=== PATIENT | female | born 1940 | race Caucasian/White ===

== ENCOUNTER 2018-04-01 15:41 | Inpatient (IN) ==
[2018-04-01] MEDS ORDERED: Ipratropium/Albuterol Neb 3 ML IH ONE (15:44)
[2018-04-01] MEDS ORDERED: methylPREDNISolone 125 MG/2 ML VIAL IVP ONE (15:45)
[2018-04-01] MEDS ORDERED: 0.9 % Sodium Chloride 1,000 ML IVC SCH ×2 (15:45→18:18)
--- NOTE | 2018-04-01 15:46 | Emergency Department Note ---
Disposition Clinical Impression: Congestive heart failure, Hypertension Disposition: Admitted As Inpatient Condition: Good SOB HPI - General Chief Complaint: ED Shortness of Breath/Dyspnea Stated Complaint: difficulty breathing Time Seen by Provider: 04/01/18 15:43 Source: patient Mode of arrival: EMS Limitations: no limitations Nursing Notes Reviewed: Yes Vital Signs Reviewed: Yes - History of Present Illness Patient states his been short of breath progressively worse over the past couple of days. She coughing up a thick yellow sputum she complains of being achy all over. She did have her flu shot this year. She denies any fevers or chest pain. Onset (ago): day(s) (2 days) Severity: moderate Consistency/Duration: constant Improves with: nothing Worsens with: nothing Known history of: COPD, congestive heart failure Associated symptoms: Reports: cough, sputum production, other (bilateral lower leg edema). Denies: chest pain, fever, wheezing Cough Description: Involuntary Cough Frequency: Intermittent Sputum production: Yes Sputum Amount: Scant Sputum Color: Yellow - Related Data Home Medications Medication Instructions Recorded Confirmed ALPRAZolam [Xanax 0.5 MG Tablet] 0.5 mg PO BID 11/06/14 11/06/14 Butalb/Acetaminophen/Caffeine 50 mg PO Q4H PRN 11/06/14 11/06/14 [Fioricet 50-300-40 mg Capsule] Clopidogrel [Plavix] 75 mg PO DAILY 11/06/14 11/06/14 Labetalol [Trandate] 200 mg PO BID 11/06/14 11/06/14 Lansoprazole [Prevacid] 15 mg PO 11/06/14 11/06/14 Lisinopril [Zestril] 40 mg PO DAILY 11/06/14 11/06/14 Ondansetron [Zofran] 8 mg PO Q8HR 11/06/14 11/06/14 Oxycodone HCl/Acetaminophen 10 - 325 mg PO Q6H PRN 11/06/14 11/06/14 [Endocet 10-325 mg Tablet] Sucralfate [Carafate] 1 gm PO 11/06/14 11/06/14 Trazodone HCl [Oleptro ER] 150 mg PO 11/06/14 11/06/14 Allergies Allergy/AdvReac Type Severity Reaction Status Date / Time Amoxicillin Allergy Hives Verified 11/06/14 12:46 codeine Allergy Swelling Verified 11/06/14 12:46 of Lip/Tongue/Throat pentazocine [From Talwin] Allergy unknown Verified 11/06/14 12:46 acetaminophen [From Vicodin] AdvReac Vomiting Verified 11/06/14 12:43 aspirin AdvReac Vomiting Verified 11/06/14 12:43 celecoxib [From Celebrex] AdvReac kidney Verified 11/06/14 12:43 problems gabapentin AdvReac Vomiting Verified 11/06/14 12:46 hydrocodone [From Vicodin] AdvReac Vomiting Verified 11/06/14 12:43 All systems ED: reviewed and negative except as stated. Review of Systems: As Per HPI Constitutional: Denies: fever, chills, weakness, weight change Eyes: Denies: eye pain, eye discharge, vision change ENT ED: Denies: ear pain, throat pain, dental pain, hearing loss, epistaxis, congestion, dysphagia Cardiovascular: Denies: chest pain, palpitations, dyspnea on exertion, edema, syncope Respiratory: Reports: as per HPI, cough, dyspnea, sputum production Gastrointestinal: Denies: abdominal pain, nausea, vomiting, diarrhea, constipation, hematemesis, melena, hematochezia Genitourinary: Denies: dysuria, frequency, hematuria, discharge Musculoskeletal: Denies: back pain, neck pain, arthralgia, myalgia Integumentary: Denies: rash, abrasion, lesions Neurological: Denies: headache, weakness, numbness, paresthesias, confusion, abnormal gait, vertigo Psychiatric: Reports: as per HPI Endocrine: Denies: fatigue Hematological/Lymphatic: Denies: easy bleeding, easy bruising Allergic/Immunologic: Denies: facial swelling, urticaria Past Medical History - Past Medical History Attestation: Yes The following information was validated with the patient. Source: patient, nursing notes reviewed Medical history: Reports: CVA, diabetes, fibromyalgia, hypertension, liver disease, renal disease Surgical history: Reports: angioplasty/stent, breast surgery, cholecystectomy, hysterectomy, orthopedic, other Psychiatric history: Reports: anxiety, depression - Social History Smoking Status: Never smoker Smokeless Tobacco Status: No Alcohol use: Reports: none Drug use: Reports: none Physical Exam - General Limitations: no limitations General appearance: alert, in no apparent distress - Head Head exam: atraumatic, normocephalic, normal inspection - Eye Eye exam: Present: normal appearance, PERRL, EOMI - ENT ENT exam: normal exam, normal oropharynx, mucous membranes moist - Neck Neck exam: Present: normal inspection, full ROM, trachea midline - Chest Chest inspection: Present: normal inspection, symmetric chest wall rise - Respiratory Respiratory exam: Present: respiratory distress (Mild respiratory distress with some retractions and use of accessory muscles. Generally diminished breath sounds. Perhaps a few faint wheezes noted), accessory muscle use - Cardiovascular Cardiovascular exam: Present: regular rate, normal rhythm, normal heart sounds - Abdominal Exam Abdominal exam: Present: soft, Non-Tender, normal bowel sounds - Extremities Exam Extremities exam: Present: pedal edema - Back Exam Back exam: Present: normal inspection, full ROM. Absent: tenderness - Neurological Exam Neurological exam: Present: alert, oriented X3 - Psychiatric Psychiatric exam: Present: normal affect, normal mood - Skin Skin exam: Present: warm, dry, intact Shortness of Breath/Dyspnea - Lab Data Lab results reviewed: Yes I reviewed the patient's lab results. - Radiology Data Radiology results reviewed: Yes I reviewed the patient's radiology results. - EKG Data EKG attestation: Yes I reviewed and interpreted this EKG. EKG results narrative: KG shows sinus rhythm rate of 93 bpm NC interval is 149 ms QRS duration 88 ms QT QTc interval 357 & 444 ms respectively. There appears to be minimal ST depression in the anterolateral leads. QRS axis 60 degrees
[2018-04-01] MEDS ORDERED: Furosemide 20 MG/2 ML VIAL IVP ONE (15:49)
[2018-04-01] MEDS ORDERED: *HR* LORazepam 0.5 MG TABLET PO ONE (16:26)
[2018-04-01 16:40] LABS: Basophils % 0.5 %; Eosinophils % 0.2 %; Hematocrit 30.6 % (35.3-44.9); Hemoglobin 9.7 g/dL (11.5-15.4); Immature Granulocytes % 0.3 % (0-4); Lymphocytes # 1.1 K/mcL (0.6-4.6); Lymphocytes % 17.1 %; Mean Corpuscular HGB Conc 31.7 g/dL (31.6-35.5); Mean Corpuscular Hemoglobin 31.5 pg (28.0-33.3); Mean Corpuscular Volume 99.4 fL (83.0-100.0); Mean Platelet Volume 9.9 fL (9.4-12.4); Monocytes # 0.2 K/mcL (0.0-1.3); Neutrophils # 5.1 K/mcL (1.6-8.9); Platelet Count 410 K/mcL (140-400); Red Blood Count 3.08 M/mcL (3.82-4.97); Red Cell Distribution Width 13.4 % (11.5-14.5); Segmented Neutrophils % 78.9 %
[2018-04-01 16:53] LABS: Alanine Aminotransferase 10 Units/L (7-52); Albumin 4.3 g/dL (3.5-5.7); Albumin/Globulin Ratio 1.4 (1.1-2.2); Alkaline Phosphatase 98 Units/L (34-104); Aspartate Amino Transferase 13 Units/L (13-39); BUN/Creatinine Ratio 12 (6-26); Bilirubin,Total 0.3 mg/dL (0.3-1.0); Blood Urea Nitrogen 27 mg/dL (8-23); Calcium 10.1 mg/dL (8.6-10.3); Carbon Dioxide 19 mEq/L (23-29); Chloride 111 mEq/L (98-107); Glucose 178 mg/dL (70-105); Osmolality,Calculated 298 (280-300); Potassium 4.9 mEq/L (3.5-5.1); Sodium 139 mEq/L (136-145); Total Protein 7.3 g/dL (6.4-8.9); Troponin I < 0.03 ng/mL (< 0.04); eGFR For Non-African Americans 22 (> 60)
[2018-04-01] MEDS ORDERED: cloNIDine HCl 0.1 MG TABLET PO ONE (17:11)
[2018-04-01] MEDS ORDERED: Naloxone 0.4 MG/ML INJ IVP PRN (18:18)
[2018-04-01] MEDS ORDERED: *HR* Metoprolol 5 MG/5 ML VIAL IVP ONE (21:03)
[2018-04-01] MEDS: ALPRAZolam 0.5 MG TABLET PO SCH (21:20)
[2018-04-01] MEDS: Acetaminophen/Butalbital/CaffeineTABLET PO PRN (21:20)
[2018-04-01] MEDS: Ondansetron ODT 4 MG TAB.RAPDIS SL PRN (21:21)
[2018-04-01] MEDS: traMADol 50 MG TABLET PO PRN (22:18)
[2018-04-02] MEDS ORDERED: Ondansetron ODT 4 MG TAB.RAPDIS PO SCH
[2018-04-02] MEDS ORDERED: *HR* Metoprolol 5 MG/5 ML VIAL IVP STA (00:18)
[2018-04-02] MEDS ORDERED: *HR* OxyCODONE/APAP 10/325 TABLET PO STA (02:19)
[2018-04-02] MEDS ORDERED: *HR* Metoprolol 5 MG/5 ML VIAL IVP ONE (02:20)
[2018-04-02] MEDS: Ondansetron ODT 4 MG TAB.RAPDIS SL PRN (02:33)
[2018-04-02] MEDS ORDERED: *HR* Morphine 2 MG/ML SYRINGE IVP ONE (04:29)
[2018-04-02] MEDS ORDERED: amLODIPine 5 MG TABLET PO STA (04:30)
[2018-04-02] MEDS: Ondansetron 4 MG/2 ML VIAL IVP PRN ×3 (04:52→18:09)
[2018-04-02 04:59] LABS: Basophils % 0.1 %; Hematocrit 28.1 % (35.3-44.9); Hemoglobin 9.2 g/dL (11.5-15.4); Immature Granulocytes % 0.8 % (0-4); Lymphocytes # 0.6 K/mcL (0.6-4.6); Lymphocytes % 7.4 %; Mean Corpuscular HGB Conc 32.7 g/dL (31.6-35.5); Mean Corpuscular Hemoglobin 31.6 pg (28.0-33.3); Mean Corpuscular Volume 96.6 fL (83.0-100.0); Mean Platelet Volume 9.5 fL (9.4-12.4); Monocytes # 0.3 K/mcL (0.0-1.3); Monocytes % 3.5 %; Neutrophils # 6.8 K/mcL (1.6-8.9); Platelet Count 378 K/mcL (140-400); Red Blood Count 2.91 M/mcL (3.82-4.97); Red Cell Distribution Width 13.2 % (11.5-14.5); Segmented Neutrophils % 88.2 %
[2018-04-02 05:21] LABS: Calcium 9.7 mg/dL (8.6-10.3); Potassium 4.5 mEq/L (3.5-5.1)
[2018-04-02] MEDS: ALPRAZolam 0.5 MG TABLET PO SCH ×2 (08:21→20:39)
[2018-04-02] MEDS: traMADol 50 MG TABLET PO PRN (08:21)
[2018-04-02] MEDS: Lisinopril 20 MG TABLET PO SCH (08:21)
--- NOTE | 2018-04-02 12:20 | Internal Med History&Physical ---
Date of Encounter: 04/02/18 Time of Encounter: 11:40 Assessment and Plan (1) Congestive heart failure Current visit: Yes Status: Acute Duration and type unknown. Echocardiogram will be ordered to further evaluate. Qualifiers: Heart failure type: unspecified Heart failure chronicity: unspecified Qualified Code(s): I50.9 - Heart failure, unspecified (2) CKD (chronic kidney disease) stage 4, GFR 15-29 ml/min Current visit: Yes Status: Chronic Monitor renal indices. (3) Anemia Current visit: Yes Status: Chronic Hemoglobin stable since 2014. Monitor CBC. Qualifiers: Anemia type: due to chronic kidney disease Chronic kidney disease stage: stage 4 (severe) Qualified Code(s): N18.4 - Chronic kidney disease, stage 4 (severe); D63.1 - Anemia in chronic kidney disease (4) History of DVT of lower extremity Current visit: Yes Status: Acute Order d-dimer further evaluate dyspnea. (5) Hypertension Current visit: Yes Status: Chronic She reports home blood pressures range from 140-170 systolic. Medication will be adjusted to improve control. Qualifiers: Hypertension type: essential hypertension Qualified Code(s): I10 - Essential (primary) hypertension Internal Medicine - H&P: HPI Chief complaint: Dyspnea Admitted From: Emergency Dept Plans for Post Hospital Care: Home History of present illness: Ms. Ballard is a 78 year old female who came to emergency room stating she had onset of dyspnea March 30 while doing usual leisure activity. She reports a cough productive of yellow sputum. When her dyspnea did not improve over the next 2 days she came to emergency room. She was evaluated and was felt to have exacerbation of heart failure. She was admitted to [facility] floor for ongoing care needs. She denies significant dyspnea on exertion until onset of present symptoms March 30. Cardiovascular history is pertinent for hypertension. She denies known previous diagnosis of heart failure. She reports a stress test, heart cath, and echocardiogram were done over 10 years ago. She reports multiple DVTs in her right leg with most recent one approximately 2013. She states she has never been on OAC. She does take Plavix. She denies CA or history of pulmonary embolism. Past Med Surg Social Fam HX - Past Medical History Medical history: CVA, diabetes, fibromyalgia, hypertension, liver disease, renal disease Additional medical history: migraines,anemia,dvt,oateoperosis,numbness/tingling,ulcers, Psychiatric history: anxiety, depression - Past Surgical History Surgical History: angioplasty/stent, breast surgery, cholecystectomy, hysterectomy, orthopedic, other Additional surgical history: lymphectomy, stomach surger, knee surgery - Social History Smoking Status: Never smoker Smokeless Tobacco Status: No Alcohol use: none Drug use: none Internal Medicine - H&P: Meds ALPRAZolam [Xanax 0.5 MG Tablet] 0.5 mg PO BID 11/06/14 [History] Butalb/Acetaminophen/Caffeine [Fioricet 50-300-40 mg Capsule] 50 mg PO Q4H PRN 11/06/14 [History] Clopidogrel [Plavix] 75 mg PO DAILY 11/06/14 [History] Labetalol [Trandate] 200 mg PO BID 11/06/14 [History] Lansoprazole [Prevacid] 15 mg PO 11/06/14 [History] Lisinopril [Zestril] 40 mg PO DAILY 11/06/14 [History] Ondansetron [Zofran] 8 mg PO Q8HR 11/06/14 [History] Oxycodone HCl/Acetaminophen [Endocet 10-325 mg Tablet] 10 - 325 mg PO Q6H PRN 11/06/14 [History] Sucralfate [Carafate] 1 gm PO 11/06/14 [History] Trazodone HCl [Oleptro ER] 150 mg PO 11/06/14 [History] Allergy/AdvReac Type Severity Reaction Status Date / Time Amoxicillin Allergy Hives Verified 11/06/14 12:46 codeine Allergy Swelling Verified 11/06/14 12:46 of Lip/Tongue/Throat pentazocine [From Talwin] Allergy unknown Verified 11/06/14 12:46 acetaminophen [From Vicodin] AdvReac Vomiting Verified 11/06/14 12:43 aspirin AdvReac Vomiting Verified 11/06/14 12:43 celecoxib [From Celebrex] AdvReac kidney Verified 11/06/14 12:43 problems gabapentin AdvReac Vomiting Verified 11/06/14 12:46 hydrocodone [From Vicodin] AdvReac Vomiting Verified 11/06/14 12:43 All Systems PM: A 10-system review of systems was performed and is negative for pertinent findings except as documented above in the HPI. Review of systems: Gen.: She states her weight has been stable for the past year Cardiovascular: As per history of present illness Respiratory: She is a lifelong nonsmoker and denies chronic lung disease. She does not use home oxygen. GI: She has had cholecystectomy in the 1970s. She reports several episodes of pancreatitis but does not know the etiology. She is a lifelong nondrinker. She has occasional GERD symptoms. She has had GI bleed in the past but does not know the etiology. She denies disorders of her liver or exocrine pancreas otherwise. 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 She has had bladder lift surgery several years ago. She denies other kidney or bladder disorders. Neurologic: She denies large distribution strokes or seizures. Endocrine: She denies definite diagnosis of diabetes. She has no known thyroid disease or hyperlipidemia. Hematology/oncology: She has had skin cancer removal but denies internal malignancies. She has anemia with workup showing no factor deficiency. Psychiatric: She has anxiety and depression but denies other mental health issues [place] skeletal: She has DJD but denies gout or other bone joint or muscle disorders. - Constitutional Vitals: Temp Pulse Resp BP Pulse Ox 98.6 F 84 14 195/82 97 04/02/18 10:58 04/02/18 10:58 04/02/18 10:58 04/02/18 10:58 04/02/18 10:58 Exam: Gen.: She is a well-developed well-nourished female lying in bed who appears in no acute distress. She is wearing oxygen by nasal cannula. HEENT: Head is atraumatic and normocephalic. Eyes: EOMI. There is no scleral icterus. Mouth: Mucosa is moist. Neck: Supple and nontender. There is no thyromegaly or adenopathy noted. Heart: Regular with occasional ectopic beat which is asymptomatic. Lungs: She has diminished breath sounds diffusely. No wheezes or crackles are heard. Back: She has dorsal kyphosis. There is no flank tenderness or presacral edema Abdomen: Soft and nontender. No masses or guarding are noted. Extremities: There is no cyanosis edema or clubbing noted. Dorsalis pedis and posttibial pulses are trace to 1+ palpable bilaterally. She has DJD changes of her hands and feet. Neurologic: Mental status: She is talkative and a good historian. Cranial nerves: Smile is symmetric. Forehead wrinkles bilaterally. Tongue protrudes midline. EOMI. Motor: There is no pronator drift. Cerebellar: Finger to nose is intact bilaterally. Skin: Warm and dry Internal Med - H&P Results - Labs CBC & Chem 7: 04/02/18 04:50 04/02/18 04:50 Labs: Short CBC 04/01/18 04/02/18 Range/Units 16:02 04:50 WBC 6.4 7.7 (4.3-11.1) K/mcL Hgb 9.7 L 9.2 L (11.5-15.4) g/dL Hct 30.6 L 28.1 L (35.3-44.9) % Plt Count 410 H 378 (140-400) K/mcL Neutrophils # 5.1 6.8 (1.6-8.9) K/mcL BMP 04/01/18 04/02/18 16:02 04:50 Sodium 139 138 Potassium 4.9 4.5 Chloride 111 H 109 H Carbon Dioxide 19 L 19 L BUN 27 H 31 H Creatinine 2.18 H 2.01 H Glucose 178 H 159 H Calcium 10.1 9.7 Cardiac Enzymes 04/01/18 04/01/18 04/02/18 Range/Units 16:02 22:16 04:50 Troponin I < 0.03 0.04 H* 0.04 H* (< 0.04) ng/mL 04/02/18 Range/Units 10:09 Troponin I 0.05 H* (< 0.04) ng/mL Liver Function 04/01/18 Range/Units 16:02 Total Bilirubin 0.3 (0.3-1.0) mg/dL AST 13 (13-39) Units/L ALT 10 (7-52) Units/L Alkaline Phosphatase 98 (34-104) Units/L Albumin 4.3 (3.5-5.7) g/dL - Impressions ITS Impressions Chest X-Ray 04/01/18 15:43 IMPRESSION: Perihilar vascular congestion and interstitial changes suggesting CHF versus infiltrate. Moderate left pleural effusion with basilar volume loss. D/ / Mac Mackay MD / Mac Mackay MD Interpreting Provider: Mac Mackay MD Chest X-Ray 04/02/18 07:00 IMPRESSION: Significant improvement in the appearance of the chest with near complete resolution of the pulmonary vascular congestion previously present. Small left pleural effusion with atelectasis or pneumonia in the base of the left lung. Mild right basilar atelectasis. Moderate emphysematous changes. D/ / Tevin Bazan MD / Tevin Bazan MD Interpreting Provider: Tevin Bazan MD
[2018-04-02] MEDS: cloNIDine HCl 0.1 MG TABLET PO SCH ×2 (13:14→19:53)
[2018-04-02] MEDS: amLODIPine 5 MG TABLET PO SCH (18:10)
--- NOTE | 2018-04-02 18:48 | Electrocardiograph Report ---
[place] [id number] Test Date: 2018-04-01 Pat Name: Amira Ballard Department: EDP-16 Room: [facility] Gender: F [employer] Installer: : 1940 Requested By: Charan Call Order Number: [id number] Reading MD: Rajendra Barroso Measurements Intervals Council Rate: 93 P: 77 MI: 149 QRS: 60 QRSD: 88 T: 59 QT: 357 QTc: 444 Interpretive Statements Sinus rhythm Borderline low voltage, extremity leads Minimal ST depression, anterolateral leads Electronically Signed On 04-02-2018 18:46:59 EST by Rajendra Barroso
[2018-04-02] MEDS ORDERED: *HR* Promethazine 25 MG/ML VIAL IVP PRN (20:21)
[2018-04-03] MEDS ORDERED: cloNIDine HCl 0.1 MG TABLET PO SCH ×2 (02:00→04:30)
[2018-04-03 04:59] LABS: Chol/HDL Ratio 3.2 (0-4.9)
[2018-04-03 05:04] LABS: Thyroid Stimulating Hormone 3.755 mcIU/mL (0.340-5.600)
[2018-04-03] MEDS: traMADol 50 MG TABLET PO PRN ×2 (08:22→18:25)
[2018-04-03] MEDS: ALPRAZolam 0.5 MG TABLET PO SCH ×2 (08:22→21:15)
[2018-04-03] MEDS: amLODIPine 5 MG TABLET PO SCH ×2 (08:23→16:01)
[2018-04-03] MEDS: Lisinopril 20 MG TABLET PO SCH (08:23)
--- NOTE | 2018-04-03 10:25 | Internal Med Progress Note ---
Date of Encounter: 04/03/18 Time of Encounter: 10:17 - Assessment and plan (1) Congestive heart failure Current Visit: Yes Status: Acute Assessment and plan: April 03. Echocardiogram done earlier today with report pending. Continue metoprolol, lisinopril, and start Imdur. Qualifiers: Heart failure type: unspecified Heart failure chronicity: unspecified Qualified Code(s): I50.9 - Heart failure, unspecified (2) CKD (chronic kidney disease) stage 4, GFR 15-29 ml/min Current Visit: Yes Status: Chronic Assessment and plan: April 03. Monitor renal indices. (3) Anemia Current Visit: Yes Status: Chronic Assessment and plan: April 03. Hemoglobin stable since 2014. Monitor CBC. Qualifiers: Anemia type: due to chronic kidney disease Chronic kidney disease stage: stage 4 (severe) Qualified Code(s): N18.4 - Chronic kidney disease, stage 4 (severe); D63.1 - Anemia in chronic kidney disease (4) History of DVT of lower extremity Current Visit: Yes Status: Acute Assessment and plan: April 03. D-dimer was age-adjusted normal at 738. (5) Hypertension Current Visit: Yes Status: Chronic Assessment and plan: April 03. Continue metoprolol, lisinopril, Norvasc, and increase dose of clonidine. Qualifiers: Hypertension type: essential hypertension Qualified Code(s): I10 - Essential (primary) hypertension - Subjective Interval history: April 03. She has no new complaints. She states her breathing is slightly improved but not back to baseline. - Constitutional Vitals: Temp Pulse Resp BP Pulse Ox 97.4 F L 82 16 188/83 93 04/03/18 06:00 04/03/18 06:00 04/03/18 06:00 04/03/18 09:59 04/03/18 06:00 Exam: She is resting comfortably in bed and is wearing oxygen by nasal cannula. Extremities show 0 to trace edema bilaterally. I reviewed her medications and lab results. Internal Medicine: Result - Labs CBC & Chem 7: 04/02/18 04:50 04/02/18 04:50 Labs: Cardiac Enzymes 04/02/18 Range/Units 10:09 Troponin I 0.05 H* (< 0.04) ng/mL - ABG Interpretation ABG results: PT/INR, D-dimer D-Dimer 738 ng/mLFEU (0-500) H 04/02/18 12:48 Consult Discharge Plan - Plan Referrals: NONE,PCP [Primary Care Provider] - 1 week
[2018-04-03] MEDS: Isosorbide MONOnitrate (24 HR) 30 MG TAB.ER.24H PO SCH (11:11)
[2018-04-03] MEDS: cloNIDine HCl 0.1 MG TABLET PO SCH ×2 (11:11→18:26)
[2018-04-03] MEDS: Acetaminophen/Butalbital/CaffeineTABLET PO PRN (21:16)
[2018-04-03] MEDS ORDERED: Naloxone 0.4 MG/ML INJ IM PRN (22:33)
[2018-04-03] MEDS ORDERED: Ondansetron ODT 4 MG TAB.RAPDIS SL PRN (22:37)
[2018-04-04] MEDS: cloNIDine HCl 0.1 MG TABLET PO SCH ×2 (02:45→11:26)
[2018-04-04] MEDS: Acetaminophen/Butalbital/CaffeineTABLET PO PRN (06:17)
[2018-04-04 06:42] LABS: Basophils % 0.4 %; Eosinophils % 0.4 %; Hematocrit 24.3 % (35.3-44.9); Hemoglobin 7.5 g/dL (11.5-15.4); Immature Granulocytes % 0.5 % (0-4); Lymphocytes # 1.2 K/mcL (0.6-4.6); Mean Corpuscular HGB Conc 30.9 g/dL (31.6-35.5); Mean Corpuscular Hemoglobin 31.3 pg (28.0-33.3); Mean Corpuscular Volume 101.3 fL (83.0-100.0); Mean Platelet Volume 10.1 fL (9.4-12.4); Monocytes # 0.5 K/mcL (0.0-1.3); Monocytes % 8.9 %; Neutrophils # 3.9 K/mcL (1.6-8.9); Platelet Count 286 K/mcL (140-400); Red Cell Distribution Width 13.5 % (11.5-14.5); Segmented Neutrophils % 68.8 %
[2018-04-04 07:09] LABS: Calcium 9.4 mg/dL (8.6-10.3); Potassium 4.2 mEq/L (3.5-5.1)
[2018-04-04] MEDS: Isosorbide MONOnitrate (24 HR) 30 MG TAB.ER.24H PO SCH (08:44)
[2018-04-04] MEDS: ALPRAZolam 0.5 MG TABLET PO SCH (08:44)
[2018-04-04] MEDS: amLODIPine 5 MG TABLET PO SCH (08:45)
[2018-04-04] MEDS: Lisinopril 20 MG TABLET PO SCH (08:45)
[2018-04-04 11:06] VITALS: BP 133/72
--- NOTE | 2018-04-04 12:39 | Discharge Summary ---
Orders not resulted at time of discharge: Pending orders 04/01/18 16:00 Culture,Blood [BC] Stat Date of Encounter: 04/04/18 Time of Encounter: 12:10 - Discharge Diagnosis (1) Congestive heart failure Priority: Primary Status: Acute Qualifiers: Heart failure type: diastolic Heart failure chronicity: unspecified Qualified Code(s): I50.30 - Unspecified diastolic (congestive) heart failure (2) Hypertension Priority: Secondary Status: Chronic Qualifiers: Hypertension type: essential hypertension Qualified Code(s): I10 - Essential (primary) hypertension (3) Pulmonary hypertension Priority: Secondary Status: Chronic (4) Mitral regurgitation Priority: Secondary Status: Chronic Qualifiers: Cardiac valve disease etiology: etiology unspecified Qualified Code(s): I34.0 - Nonrheumatic mitral (valve) insufficiency (5) Aortic regurgitation Priority: Secondary Status: Chronic Qualifiers: Cardiac valve disease etiology: etiology unspecified Qualified Code(s): I35.1 - Nonrheumatic aortic (valve) insufficiency (6) Tricuspid regurgitation Priority: Secondary Status: Chronic Qualifiers: Cardiac valve disease etiology: etiology unspecified Qualified Code(s): I07.1 - Rheumatic tricuspid insufficiency (7) CKD (chronic kidney disease) stage 4, GFR 15-29 ml/min Priority: Secondary Status: Chronic (8) History of DVT of lower extremity Priority: Secondary Status: Acute (9) Anemia Priority: Secondary Status: Chronic Qualifiers: Anemia type: due to chronic kidney disease Chronic kidney disease stage: stage 4 (severe) Qualified Code(s): N18.4 - Chronic kidney disease, stage 4 (severe); D63.1 - Anemia in chronic kidney disease Hospital course: Ms. Ballard is a 78 year old female who came to emergency room stating she had onset of dyspnea March 30 while doing usual leisure activity. She reports a cough productive of yellow sputum. When her dyspnea did not improve over the next 2 days she came to emergency room. She was evaluated and was felt to have exacerbation of heart failure. She was admitted to [facility] for ongoing care needs. Initial orders were written by the emergency room physician. I saw her on April 02 and performed the history and physical. She was started on increasing doses of medication to treat hypertension. Blood pressure returned to acceptable level on Norvasc, clonidine, lisinopril, and Lopressor at near maximum/maximum doses. An echocardiogram was done to further evaluate. The LVEF was 65%. There was concentric LVH with interventricular septum and posterior wall thickness measurements elevated at 1.40 cm each. There was LAE at 4.50 cm. Right atrium was reported moderately dilated without measurement recorded. There was [id number] aortic regurgitation, mild aortic stenosis, [id number] mitral regurgitation, moderate tricuspid regurgitation and severe pulmonary hypertension with estimated RVSP 85-95 mmHg. I discussed the echo findings with patient and family. He recommended she have additional cardiac evaluation and explained she might need valve repair/r eplacement. Arrangements were complete on April 04 for her to be transferred to [facility] for ongoing care needs. - Time Spent with Patient Total time spent providing and/or coordinating discharge services: - Discharge Medications Home Medications: ALPRAZolam [Xanax 0.5 MG Tablet] 0.5 mg PO BID 11/06/14 [History] Butalb/Acetaminophen/Caffeine [Fioricet 50-300-40 mg Capsule] 50 mg PO Q4H PRN 11/06/14 [History] Clopidogrel [Plavix] 75 mg PO DAILY 11/06/14 [History] Labetalol [Trandate] 200 mg PO BID 11/06/14 [History] Lansoprazole [Prevacid] 15 mg PO 11/06/14 [History] Lisinopril [Zestril] 40 mg PO DAILY 11/06/14 [History] Ondansetron [Zofran] 8 mg PO Q8HR 11/06/14 [History] Oxycodone HCl/Acetaminophen [Endocet 10-325 mg Tablet] 10 - 325 mg PO Q6H PRN 11/06/14 [History] Sucralfate [Carafate] 1 gm PO 11/06/14 [History] Trazodone HCl [Oleptro ER] 150 mg PO 11/06/14 [History] Allergies/Adverse Reactions: Allergy/AdvReac Type Severity Reaction Status Date / Time Amoxicillin Allergy Hives Verified 11/06/14 12:46 codeine Allergy Swelling Verified 11/06/14 12:46 of Lip/Tongue/Throat pentazocine [From Talwin] Allergy unknown Verified 11/06/14 12:46 acetaminophen [From Vicodin] AdvReac Vomiting Verified 11/06/14 12:43 aspirin AdvReac Vomiting Verified 11/06/14 12:43 celecoxib [From Celebrex] AdvReac kidney Verified 11/06/14 12:43 problems gabapentin AdvReac Vomiting Verified 11/06/14 12:46 hydrocodone [From Vicodin] AdvReac Vomiting Verified 11/06/14 12:43 Date of admission: 04/02/18 21:43 Primary care physician: PCP NONE Consults: 04/01/18 20:34 Consult to Nutrition [CONS] Routine Comment: weight loss Consulting Provider: NUTRITION Reason for Dietary Consult: Diet Education - Constitutional Vitals: Temp Pulse Resp BP Pulse Ox 98.1 F 56 15 133/72 97 04/04/18 11:05 04/04/18 11:05 04/04/18 11:05 04/04/18 11:05 04/04/18 11:05 - Patient Status Disposition: Transfer Other Condition: Good - Discharge Instructions
[2018-04-04] MEDS: traMADol 50 MG TABLET PO PRN (14:13)
== END 2018-04-04 15:21 | disposition other institution (70) | DRG 292 ==
LOC: INPPIK 15:41 → EMEROOPIK 15:41 → INPPIK 18:11
PROVIDERS: ADMIT Internal Medicine; ATTEND Internal Medicine